=== PATIENT | female | born 1960 | race Two or more races ===

== ENCOUNTER → 2022-07-08 | Outpatient (CLI) | payer OTHER | END | disposition home or self-care (01) | LOC: Rad HDHVI 13:44 | PROVIDERS: ATTEND Internal Medicine Cardiovascular Disease | DX: I08.1 Rheumatic disorders of both mitral and tricuspid valves (principal); I11.9 Hypertensive heart disease without heart failure | CPT/HCPCS: 93306 ==

== ENCOUNTER → 2022-08-04 | Outpatient (CLI) | payer OTHER ==
[~2022-08-04] VITALS: Ht 172.7 cm; Wt 130.2 kg
[~2022-08-04] MED LIST: ADENOSINE 109 MG in GIVE UN-DILUTED 0 ML IV ONE; ADENOSINE 90 MG/30 ML INJ IV ONE
== END | disposition home or self-care (01) ==
LOC: Rad HDHVI 13:31
PROVIDERS: ATTEND Internal Medicine Cardiovascular Disease
DX: I25.10 Atherosclerotic heart disease of native coronary artery without angina pectoris (principal); I25.2 Old myocardial infarction; R06.02 Shortness of breath; I10 Essential (primary) hypertension; E78.5 Hyperlipidemia, unspecified; J44.9 Chronic obstructive pulmonary disease, unspecified; E11.9 Type 2 diabetes mellitus without complications; R07.89 Other chest pain; Z79.899 Other long term (current) drug therapy
CPT/HCPCS: 78452; 93005; 96374; 96375; A9500; J0153

== ENCOUNTER → 2023-03-03 | Outpatient (CLI) | payer OTHER ==
[~2023-03-03] MED LIST changes: -ADENOSINE 109 MG in GIVE UN-DILUTED 0 ML IV ONE; -ADENOSINE 90 MG/30 ML INJ IV ONE; +ATOR-47 PO; +BUME2TAB5 PO; +BUPR75TA96 PO; +CARV12.544 PO; +CHOL50007 PO; +DULO30CA96 PO; +FOLI-119 PO; +HYDR-4188 PO; +HYDR-4902 PO; +LEVO100T8 PO; +MAGN100T9 PO; +METH2.5T PO; +NITR0.4S29 SL; +POTA1TAB61 PO; +SITA100T7 PO; +TIOTCAP IN; +UPAD15TA PO
[2023-03-03 10:20] VITALS: BP 140/64; PULSE 63; RESP 18; O2SAT 95
[2023-03-03 10:33] VITALS: BP 116/66; PULSE 63; RESP 18; O2SAT 95
== END | disposition home or self-care (01) ==
LOC: CHF HDHVI 10:05
PROVIDERS: ATTEND Internal Medicine Cardiovascular Disease
DX: Z01.818 Encounter for other preprocedural examination (principal); I10 Essential (primary) hypertension; R07.89 Other chest pain; R06.02 Shortness of breath
CPT/HCPCS: 93005; G0463

== ENCOUNTER 2023-03-04 08:47 | Day surgery (SDC) | payer OTHER, MEDICAID ==
[2023-03-03 12:16] LABS: Basophils # (auto) 0.1 10 ^3/uL (0-0.2); Basophils % (auto) 1.3 % (0.0-2.0); Eosinophils # (auto) 0.1 10 ^3/uL (0-0.8); Eosinophils % (auto) 2.2 % (0.0-7.0); Hemoglobin 13.2 g/dL (12.2-16.2); Lymphocytes # (auto) 1.8 10 ^3/uL (0.4-5.4); Lymphocytes % (auto) 35.7 % (10.0-50.0); Mean Corpuscular Hgb Conc. 31.5 g/dL (32.0-36.0); Mean Corpuscular Volume 85.6 fL (80.0-100.0); Monocytes # (auto) 0.7 10 ^3/uL (0-1.3); Monocytes % (auto) 13.2 % (0.0-12.0); Neutrophils # (auto) 2.4 10 ^3/uL (1.6-8.6); Neutrophils % (auto) 47.6 % (37.0-80.0); Nucleated Red Blood Cells % 0.1 %; Red Blood Cells 4.91 10^6/uL (4.0-5.20); White Blood Cell 5.1 10^3/uL (4.4-10.8)
[2023-03-03 12:54] LABS: INR 1.09 (0.9-1.15); Partial Thromboplastin Time 28.7 SEC (24.5-34.5); Prothrombin Time 11.4 sec (9.3-11.8)
[2023-03-03 12:57] LABS: Anion Gap 6 (5-15); Carbon Dioxide 28 mmol/L (20-30); Chloride 104 mmol/L (98-107); Potassium 4.5 mmol/L (3.5-5.1); Sodium 138 mmol/L (136-145)
[2023-03-03 12:58] LABS: Calcium 9.6 mg/dL (8.5-10.1)
[2023-03-03 13:03] LABS: BUN/Creatinine Ratio 11.8 (10.0-20.0); Blood Urea Nitrogen 16 mg/dL (9-23); Glucose 147 mg/dL (74-106)
[~2023-03-04] VITALS: Ht 172.7 cm; Wt 139.3 kg
[~2023-03-04 08:47] MED LIST changes: -UPAD15TA PO
[2023-03-04] MEDS ORDERED: VANCOMYCIN 1GM/200ML 200 ML IV ONE (09:30)
[2023-03-04] MEDS ORDERED: VANCOMYCIN HCL 1000 MG VL ONE (13:26)
[2023-03-04] MEDS ORDERED: LIDOCAINE 2%HCL (LOCAL ANESTH.) INJ 20ML MDV ONE ×2 (13:27→13:55)
[2023-03-04] MEDS ORDERED: fentaNYL CITRATE 100 MCG/2 ML VL ONE (13:27)
[2023-03-04] MEDS ORDERED: MIDAZOLAM HCL 2MG/2ML 2ml VIAL (1mg/ml) ONE (13:27)
== END 2023-03-04 16:40 | disposition home or self-care (01) ==
LOC: CATH 08:47
PROVIDERS: ATTEND Internal Medicine Cardiovascular Disease
DX: I49.5 Sick sinus syndrome (principal); J44.9 Chronic obstructive pulmonary disease, unspecified; E11.40 Type 2 diabetes mellitus with diabetic neuropathy, unspecified; I10 Essential (primary) hypertension; Z86.74 Personal history of sudden cardiac arrest; Z88.8 Allergy status to other drugs, medicaments and biological substances; Z88.6 Allergy status to analgesic agent; Z95.5 Presence of coronary angioplasty implant and graft; Z87.891 Personal history of nicotine dependence; Z79.899 Other long term (current) drug therapy; Z98.890 Other specified postprocedural states
CPT/HCPCS: 33208; 36415; 71045; 80048; 85025; 85610; 85730; C1785; C1898; J2250; J3010; J3370; 93005; 99152

== ENCOUNTER → 2023-04-06 | Outpatient (CLI) | payer OTHER | END | disposition home or self-care (01) | LOC: Rad HDHVI 08:01 | PROVIDERS: ATTEND Internal Medicine Cardiovascular Disease | DX: I08.1 Rheumatic disorders of both mitral and tricuspid valves (principal); R07.89 Other chest pain; R42 Dizziness and giddiness | CPT/HCPCS: 93306 ==

== ENCOUNTER 2023-04-16 17:58 | Inpatient (IN) | payer OTHER, MEDICAID ==
[~2023-04-16] VITALS: Ht 172.7 cm; Wt 139.0 kg
[~2023-04-16 17:58] MED LIST changes: -HYDR-4188 PO; +HYDR-4491 PO; +POTA-215 PO; -POTA1TAB61 PO
[2023-04-16 18:33] LABS: Hematocrit 36.6 % (36.0-46.0); Hemoglobin 11.7 g/dL (12.2-16.2); Mean Corpuscular Hemoglobin 27.6 pg (28.0-32.0); Mean Corpuscular Hgb Conc. 31.9 g/dL (32.0-36.0); Mean Corpuscular Volume 86.5 fL (80.0-100.0); Red Blood Cells 4.23 10^6/uL (4.0-5.20); White Blood Cell 4.4 10^3/uL (4.4-10.8)
[2023-04-16 18:37] LABS: Red Cell Distribution Width 21.6 % (11.8-14.3)
[2023-04-16 18:40] LABS: Band Neutrophils % (manual) 0; Basophils % (manual) 0 (0.0-2.0); Blast Cells 0; Metamyelocytes % 0; Myelocytes % 0; Promyelocytes % 0; Reactive Lymphocytes 0
[2023-04-16 19:00] LABS: Alanine Aminotransferase 13 U/L (7-40); Albumin 3.7 g/dL (3.2-4.8); Alkaline Phosphatase 165 U/L (46-116); Anion Gap 5 (5-15); Aspartate Aminotransferase 25 U/L (13-40); BUN/Creatinine Ratio 14.8 (10.0-20.0); Blood Urea Nitrogen 19 mg/dL (9-23); Calcium 9.2 mg/dL (8.5-10.1); Carbon Dioxide 29 mmol/L (20-30); Chloride 106 mmol/L (98-107); Glucose 114 mg/dL (74-106); Potassium 4.3 mmol/L (3.5-5.1); Sodium 140 mmol/L (136-145)
[2023-04-16 19:01] LABS: Bilirubin, Total 0.4 mg/dL (0.2-1.0); Total Protein 6.4 g/dL (5.7-8.2)
[2023-04-16 19:23] LABS: Eosinophils % (manual) 4 (0-7); Lymphocytes % (manual) 21 (10.0-50.0); Monocytes % (manual) 16 (0-12)
[2023-04-16 19:24] LABS: Platelet Estimate Adequate
[2023-04-16 19:37] LABS: INR 1.14 (0.9-1.15); Partial Thromboplastin Time 32.7 SEC (24.5-34.5); Prothrombin Time 11.9 sec (9.3-11.8)
[2023-04-16 19:59] VITALS: PULSE 76; RESP 20; O2SAT 100
[2023-04-16] MEDS ORDERED: DOCUSATE SOD 100 MG CAP PO PRN (20:45)
[2023-04-16] MEDS ORDERED: ONDANSETRON HCL 4 MG/2 ML VIAL IV PRN (20:45)
[2023-04-16] MEDS: SODIUM CHLOR 0.9% PF (SALINE LOCK) 10ML VIAL/SYR IV SCH (22:02)
[2023-04-16] MEDS: ATORVASTATIN 20 MG TAB PO SCH (22:11)
[2023-04-16] MEDS: CARVEDILOL 3.125 MG TAB PO SCH (22:12)
[2023-04-17] VITALS (8 sets, daily range): BP systolic 101–148; BP diastolic 50–59; PULSE 69–85; RESP 14–20; TEMP 97.9–98.7; O2SAT 96–100
[2023-04-17] MEDS ORDERED: PNEUMOCOCCAL VACC POLYS 25 MCG/0.5 ML VIAL IM ONE (03:15)
[2023-04-17 06:21] LABS: Hematocrit 34.8 % (36.0-46.0); Hemoglobin 11.4 g/dL (12.2-16.2); Mean Corpuscular Hemoglobin 28.2 pg (28.0-32.0); Mean Corpuscular Hgb Conc. 32.8 g/dL (32.0-36.0); Mean Corpuscular Volume 85.9 fL (80.0-100.0); Red Blood Cells 4.05 10^6/uL (4.0-5.20); White Blood Cell 3.7 10^3/uL (4.4-10.8)
[2023-04-17 06:27] LABS: Alanine Aminotransferase 10 U/L (7-40); Alkaline Phosphatase 144 U/L (46-116); Anion Gap 7 (5-15); BUN/Creatinine Ratio 10.8 (10.0-20.0); Blood Urea Nitrogen 13 mg/dL (9-23); Calcium 8.9 mg/dL (8.7-10.4); Carbon Dioxide 26 mmol/L (20-30); Chloride 107 mmol/L (98-107); Glucose 109 mg/dL (74-106); Potassium 3.9 mmol/L (3.5-5.1); Sodium 140 mmol/L (136-145)
[2023-04-17 06:28] LABS: Albumin 3.5 g/dL (3.2-4.8); Aspartate Aminotransferase 19 U/L (13-40); Bilirubin, Total 0.5 mg/dL (0.2-1.0); Total Protein 6.2 g/dL (5.7-8.2)
[2023-04-17] MEDS: LEVOTHYROXINE SODIUM 100 MCG TAB PO SCH (06:32)
[2023-04-17 06:58] LABS: Red Cell Distribution Width 21.2 % (11.8-14.3)
[2023-04-17 07:00] LABS: Basophils % (manual) 0 (0.0-2.0); Blast Cells 0; Metamyelocytes % 0; Myelocytes % 0; Promyelocytes % 0; Reactive Lymphocytes 0
[2023-04-17 08:14] LABS: Band Neutrophils % (manual) 1; Eosinophils % (manual) 4 (0-7)
[2023-04-17 08:15] LABS: Lymphocytes % (manual) 38 (10.0-50.0); Monocytes % (manual) 25 (0-12)
[2023-04-17 08:16] LABS: Anisocytosis Slight; Platelet Estimate Adequate
[2023-04-17] MEDS: ASPirin 81 mg TAB PO SCH (17:05)
[2023-04-17] MEDS: IBUPROFEN 600 MG TAB PO PRN (21:29)
[2023-04-18] VITALS (7 sets, daily range): BP systolic 112–143; BP diastolic 45–80; PULSE 63–87; RESP 18–22; TEMP 97.5–99.5; O2SAT 97–100
[2023-04-18 06:52] LABS: Hematocrit 36.4 % (36.0-46.0); Hemoglobin 11.7 g/dL (12.2-16.2); Mean Corpuscular Hemoglobin 27.9 pg (28.0-32.0); Mean Corpuscular Hgb Conc. 32.2 g/dL (32.0-36.0); Mean Corpuscular Volume 86.6 fL (80.0-100.0); White Blood Cell 5.3 10^3/uL (4.4-10.8)
[2023-04-18 06:54] LABS: Red Cell Distribution Width 21.3 % (11.8-14.3)
[2023-04-18 06:55] LABS: Basophils % (manual) 0 (0.0-2.0); Blast Cells 0; Metamyelocytes % 0; Myelocytes % 0; Promyelocytes % 0; Reactive Lymphocytes 0
[2023-04-18 07:17] LABS: Urine Bacteria FEW /hpf (None Seen); Urine Blood Negative /uL (Negative); Urine Clarity Clear (Clear); Urine Protein, UAD Negative (Negative); Urine Specific Gravity 1.006 (1.001-1.035); Urine Urobilinogen Normal (Negative); Urine WBC 9 /hpf (0 - 5)
[2023-04-18 07:19] LABS: Urine Color Yellow (Yellow)
[2023-04-18 07:23] LABS: Albumin 3.7 g/dL (3.2-4.8); Alkaline Phosphatase 150 U/L (46-116); Anion Gap 8 (5-15); Aspartate Aminotransferase 21 U/L (13-40); BUN/Creatinine Ratio 13.3 (10.0-20.0); Bilirubin, Total 0.5 mg/dL (0.2-1.0); Blood Urea Nitrogen 15 mg/dL (9-23); Calcium 9.3 mg/dL (8.5-10.1); Carbon Dioxide 27 mmol/L (20-30); Chloride 106 mmol/L (98-107); Glucose 94 mg/dL (74-106); Potassium 3.8 mmol/L (3.5-5.1); Sodium 141 mmol/L (136-145); Total Protein 6.6 g/dL (5.7-8.2)
[2023-04-18 07:24] LABS: Alanine Aminotransferase < 9 U/L (7-40)
[2023-04-18 07:30] LABS: Amphetamine Screen, Urine Neg (NEGATIVE); Barbiturate Scree,Urine Neg (NEGATIVE); Benzodiazephine Screen, Urine Neg (NEGATIVE); Cocaine Screen, Urine Neg (NEGATIVE)
[2023-04-18 07:31] LABS: Cannabinoid Screen, Urine Neg (NEGATIVE); Opiate Scree,Urine Neg (NEGATIVE); Phencyclidine Screen, Urine Neg (NEGATIVE)
[2023-04-18 08:24] LABS: Anisocytosis Slight; Band Neutrophils % (manual) 1; Eosinophils % (manual) 5 (0-7); Lymphocytes % (manual) 24 (10.0-50.0); Monocytes % (manual) 20 (0-12); Platelet Estimate Adequate
[2023-04-18] MEDS: NITROGLYCERIN 0.4 MG SL TAB SL PRN (11:29)
[2023-04-18] MEDS: MORPHINE SULFATE INJ 2 MG/ml SYRG IV PRN (11:45)
[2023-04-18] MEDS: cefTRIAXone 1GM/50ML D5W 50 ML IV ONE (17:32)
[2023-04-19] VITALS (10 sets, daily range): BP systolic 105–138; BP diastolic 50–74; PULSE 65–87; RESP 18–22; TEMP 97.9–98.3; O2SAT 94–100
[2023-04-19] MEDS: cefTRIAXone 1GM/50ML D5W 50 ML IV SCH (08:34)
[2023-04-19 08:55] LABS: Hepatitis B Surface Antigen Negative (Negative)
[2023-04-19 09:16] LABS: Hepatitis C Antibody Negative (Negative)
[2023-04-19 12:27] LABS: Hematocrit 37.1 % (36.0-46.0); Hemoglobin 12.1 g/dL (12.2-16.2); Mean Corpuscular Hemoglobin 27.9 pg (28.0-32.0); Mean Corpuscular Hgb Conc. 32.5 g/dL (32.0-36.0); Mean Corpuscular Volume 85.9 fL (80.0-100.0); Red Blood Cells 4.32 10^6/uL (4.0-5.20); White Blood Cell 7.5 10^3/uL (4.4-10.8)
[2023-04-19 12:36] LABS: Band Neutrophils % (manual) 0; Basophils % (manual) 0 (0.0-2.0); Blast Cells 0; Metamyelocytes % 0; Myelocytes % 0; Promyelocytes % 0; Reactive Lymphocytes 0
[2023-04-19 12:47] LABS: Albumin 3.7 g/dL (3.2-4.8); Alkaline Phosphatase 143 U/L (46-116); Anion Gap 4 (5-15); Aspartate Aminotransferase 17 U/L (13-40); BUN/Creatinine Ratio 11.7 (10.0-20.0); Blood Urea Nitrogen 12 mg/dL (9-23); Carbon Dioxide 26 mmol/L (20-30); Chloride 106 mmol/L (98-107); Glucose 118 mg/dL (74-106); Magnesium 2.1 mg/dL (1.6-2.6); Potassium 3.8 mmol/L (3.5-5.1)
[2023-04-19 12:48] LABS: Bilirubin, Total 0.6 mg/dL (0.2-1.0); Eosinophils % (manual) 1 (0-7); Lymphocytes % (manual) 24 (10.0-50.0); Monocytes % (manual) 16 (0-12); Total Protein 6.7 g/dL (5.7-8.2)
[2023-04-19 12:49] LABS: Anisocytosis Slight; Platelet Estimate Adequate
[2023-04-19 12:51] LABS: Alanine Aminotransferase < 9 U/L (7-40); Sodium 136 mmol/L (136-145)
[2023-04-19] MEDS: DOXYCYCLINE 100 MG TAB/CAP PO ONE (15:35)
[2023-04-19] MEDS ORDERED: ALBUTEROL SULF 2.5 MG/0.5ML(0.5%) NEB SOLN NEB PRN (15:45)
[2023-04-19] MEDS ORDERED: IPRATROPIUM BROM 0.5 MG/2.5ML INH SOL NEB PRN (15:45)
[2023-04-19 16:32] LABS: Rapid Influenza A Negative (Negative); Rapid Influenza B Negative (Negative)
[2023-04-19 16:33] LABS: COVID19 ANTIGEN SOFIA FIA NEGATIVE (NEGATIVE)
[2023-04-19] MEDS: buPROPion HCL 75 MG TAB PO SCH (18:08)
[2023-04-19] MEDS: DOXYCYCLINE 100 MG TAB/CAP PO SCH (21:26)
[2023-04-19] MEDS: ATORVASTATIN 20 MG TAB PO SCH (21:27)
[2023-04-19] MEDS: CARVEDILOL 12.5 MG TAB PO SCH (21:28)
[2023-04-19] MEDS: ENOXAPARIN SOD 30 MG/0.3 ML SYRINGE SC SCH (21:52)
[2023-04-20] VITALS (12 sets, daily range): BP systolic 102–131; BP diastolic 52–69; PULSE 60–74; RESP 18–22; TEMP 97.5–98.1; O2SAT 97–100
[2023-04-20 06:28] LABS: Hematocrit 34.8 % (36.0-46.0); Hemoglobin 11.1 g/dL (12.2-16.2); Mean Corpuscular Hemoglobin 27.6 pg (28.0-32.0); Mean Corpuscular Hgb Conc. 31.9 g/dL (32.0-36.0); Mean Corpuscular Volume 86.6 fL (80.0-100.0); Red Blood Cells 4.02 10^6/uL (4.0-5.20); White Blood Cell 5.3 10^3/uL (4.4-10.8)
[2023-04-20 06:41] LABS: Anion Gap 5 (5-15); Carbon Dioxide 29 mmol/L (20-30); Chloride 106 mmol/L (98-107); Potassium 3.9 mmol/L (3.5-5.1); Sodium 140 mmol/L (136-145)
[2023-04-20 06:42] LABS: Calcium 9.3 mg/dL (8.5-10.1)
[2023-04-20 06:46] LABS: Glucose 129 mg/dL (74-106)
[2023-04-20 06:47] LABS: BUN/Creatinine Ratio 12.4 (10.0-20.0); Blood Urea Nitrogen 14 mg/dL (9-23); Triglycerides 62 mg/dL (< 150)
[2023-04-20 06:48] LABS: Cholesterol 93 mg/dL (< 200); LDL Cholesterol 31 mg/dL (< 100)
[2023-04-20 06:49] LABS: HDL Cholesterol 49 mg/dL (40-59)
[2023-04-20 07:03] LABS: Red Cell Distribution Width 21.1 % (11.8-14.3)
[2023-04-20 07:04] LABS: Basophils % (manual) 0 (0.0-2.0); Blast Cells 0; Metamyelocytes % 0; Myelocytes % 0; Promyelocytes % 0; Reactive Lymphocytes 0
[2023-04-20 07:05] LABS: Magnesium 2.2 mg/dL (1.6-2.6)
[2023-04-20 07:40] LABS: Band Neutrophils % (manual) 1; Eosinophils % (manual) 8 (0-7); Lymphocytes % (manual) 37 (10.0-50.0); Monocytes % (manual) 17 (0-12); Platelet Estimate Adequate
[2023-04-20] MEDS: IOHEXOL 300 MG/ML 100ML BOTTLE IJ ONE (08:34)
[2023-04-20] MEDS ORDERED: ACETAMINOPHEN 325 MG TAB PO PRN (10:30)
[2023-04-20] MEDS: traMADol HCL 50 MG TAB PO PRN (11:22)
[2023-04-21] VITALS (18 sets, daily range): BP systolic 91–137; BP diastolic 47–70; PULSE 61–72; RESP 6–18; TEMP 97.4–98.3; O2SAT 93–100
[2023-04-21 07:10] LABS: INR 1.14 (0.9-1.15); Partial Thromboplastin Time 33.1 SEC (24.5-34.5); Prothrombin Time 11.9 sec (9.3-11.8)
[2023-04-21] MEDS: VANCOMYCIN HCL 1000 MG VL ONE (13:40)
[2023-04-21] MEDS: MIDAZOLAM HCL 2MG/2ML 2ml VIAL (1mg/ml) ONE (13:41)
[2023-04-21] MEDS: VANCOMYCIN 1GM/200ML 200 ML IV ONE (13:41)
[2023-04-21] MEDS: fentaNYL CITRATE 100 MCG/2 ML VL ONE (13:41)
[2023-04-21] MEDS: LIDOCAINE 2%HCL (LOCAL ANESTH.) INJ 20ML MDV ONE (13:41)
[2023-04-21] MEDS ORDERED: ceFAZolin 1GM/50ML 50 ML IV SCH (15:45)
[2023-04-21] MEDS: ceFAZolin 1GM/50ML 50 ML IV SCH (17:20)
[2023-04-21] MEDS: VANCOMYCIN 1GM/200ML 200 ML IV SCH (21:30)
[2023-04-22] VITALS (12 sets, daily range): BP systolic 107–134; BP diastolic 51–82; PULSE 65–88; RESP 18–20; TEMP 97.1–98.1; O2SAT 96–100
[2023-04-22] MEDS: IBUPROFEN 400 MG TAB PO PRN (01:42)
[2023-04-22 07:24] LABS: Hematocrit 34.9 % (36.0-46.0); Mean Corpuscular Hemoglobin 27.2 pg (28.0-32.0); Mean Corpuscular Hgb Conc. 31.5 g/dL (32.0-36.0); Mean Corpuscular Volume 86.5 fL (80.0-100.0); Red Blood Cells 4.03 10^6/uL (4.0-5.20); White Blood Cell 4.5 10^3/uL (4.4-10.8)
[2023-04-22 07:35] LABS: Red Cell Distribution Width 20.4 % (11.8-14.3)
[2023-04-22 07:37] LABS: Albumin 3.3 g/dL (3.2-4.8); Alkaline Phosphatase 124 U/L (46-116); Anion Gap 4 (5-15); Aspartate Aminotransferase 16 U/L (13-40); BUN/Creatinine Ratio 13.5 (10.0-20.0); Band Neutrophils % (manual) 0; Basophils % (manual) 0 (0.0-2.0); Blast Cells 0; Blood Urea Nitrogen 13 mg/dL (9-23); Calcium 8.8 mg/dL (8.7-10.4); Carbon Dioxide 27 mmol/L (20-30); Chloride 107 mmol/L (98-107); Glucose 131 mg/dL (74-106); Magnesium 1.9 mg/dL (1.6-2.6); Metamyelocytes % 0; Myelocytes % 0; Promyelocytes % 0; Reactive Lymphocytes 0; Sodium 138 mmol/L (136-145)
[2023-04-22 07:38] LABS: Bilirubin, Total 0.5 mg/dL (0.2-1.0)
[2023-04-22 07:45] LABS: Alanine Aminotransferase < 9 U/L (7-40)
[2023-04-22 08:27] LABS: Eosinophils % (manual) 5 (0-7); Lymphocytes % (manual) 25 (10.0-50.0); Monocytes % (manual) 18 (0-12); Platelet Estimate Adequate
[2023-04-22] MEDS: PNEUMOCOCCAL VACC POLYS 25 MCG/0.5 ML VIAL IM ONE (15:30)
[2023-04-23] VITALS (7 sets, daily range): BP systolic 121–135; BP diastolic 58–65; PULSE 61–70; RESP 17–20; TEMP 36.5; O2SAT 94–100
[2023-04-23 07:06] LABS: Hematocrit 34.6 % (36.0-46.0); Hemoglobin 11.2 g/dL (12.2-16.2); Mean Corpuscular Hemoglobin 27.5 pg (28.0-32.0); Mean Corpuscular Hgb Conc. 32.3 g/dL (32.0-36.0); Mean Corpuscular Volume 85.1 fL (80.0-100.0); Red Blood Cells 4.06 10^6/uL (4.0-5.20)
[2023-04-23 07:09] LABS: Chloride 108 mmol/L (98-107); Potassium 3.8 mmol/L (3.5-5.1); Red Cell Distribution Width 20.5 % (11.8-14.3); Sodium 141 mmol/L (136-145)
[2023-04-23 07:10] LABS: Anion Gap 6 (5-15); Band Neutrophils % (manual) 0; Basophils % (manual) 0 (0.0-2.0); Blast Cells 0; Calcium 8.9 mg/dL (8.7-10.4); Carbon Dioxide 27 mmol/L (20-30); Eosinophils % (manual) 0 (0-7); Metamyelocytes % 0; Myelocytes % 0; Promyelocytes % 0; Reactive Lymphocytes 0
[2023-04-23 07:15] LABS: BUN/Creatinine Ratio 15.6 (10.0-20.0); Blood Urea Nitrogen 14 mg/dL (9-23); Glucose 112 mg/dL (74-106)
[2023-04-23 07:16] LABS: Magnesium 2.2 mg/dL (1.6-2.6)
[2023-04-23 07:44] LABS: Lymphocytes % (manual) 33 (10.0-50.0)
[2023-04-23 07:45] LABS: Monocytes % (manual) 12 (0-12); Platelet Estimate Adequate
== END 2023-04-23 20:50 | disposition home or self-care (01) | DRG 260 ==
LOC: ER 17:58 → TELE 22:03 → TELE-WESTW 04-17 01:24
PROVIDERS: ADMIT Internal Medicine Geriatric Medicine; ATTEND Internal Medicine Geriatric Medicine
PROC: 5A09357 Assistance with Respiratory Ventilation, Less than 24 Consecutive Hours, Continuous Positive Airway Pressure (ICD-10-PCS; principal; 2023-04-19)
PROC: 5A09357 Assistance with Respiratory Ventilation, Less than 24 Consecutive Hours, Continuous Positive Airway Pressure (ICD-10-PCS; 2023-04-20)
PROC: 02H63JZ Insertion of Pacemaker Lead into Right Atrium, Percutaneous Approach (ICD-10-PCS; 2023-04-21)
PROC: 02PA3MZ Removal of Cardiac Lead from Heart, Percutaneous Approach (ICD-10-PCS; 2023-04-21)
PROC: 02HL3JZ Insertion of Pacemaker Lead into Left Ventricle, Percutaneous Approach (ICD-10-PCS; 2023-04-21)
DX: T82.118A Breakdown (mechanical) of other cardiac electronic device, initial encounter (principal); J15.69 Pneumonia due to other Gram-negative bacteria; J15.9 Unspecified bacterial pneumonia; J44.0 Chronic obstructive pulmonary disease with (acute) lower respiratory infection; N39.0 Urinary tract infection, site not specified; N17.9 Acute kidney failure, unspecified; Z68.41 Body mass index [BMI] 40.0-44.9, adult; T82.9XXA Unspecified complication of cardiac and vascular prosthetic device, implant and graft, initial encounter; E78.5 Hyperlipidemia, unspecified; E03.9 Hypothyroidism, unspecified; N18.30 Chronic kidney disease, stage 3 unspecified; E66.01 Morbid (severe) obesity due to excess calories; D72.819 Decreased white blood cell count, unspecified; D64.9 Anemia, unspecified; R79.89 Other specified abnormal findings of blood chemistry; R74.8 Abnormal levels of other serum enzymes; E11.22 Type 2 diabetes mellitus with diabetic chronic kidney disease; I12.9 Hypertensive chronic kidney disease with stage 1 through stage 4 chronic kidney disease, or unspecified chronic kidney disease; I25.10 Atherosclerotic heart disease of native coronary artery without angina pectoris; E11.40 Type 2 diabetes mellitus with diabetic neuropathy, unspecified; G47.33 Obstructive sleep apnea (adult) (pediatric); Z88.5 Allergy status to narcotic agent; Z95.0 Presence of cardiac pacemaker; Z88.6 Allergy status to analgesic agent; I25.2 Old myocardial infarction; Z95.5 Presence of coronary angioplasty implant and graft; Z87.891 Personal history of nicotine dependence; Z86.73 Personal history of transient ischemic attack (TIA), and cerebral infarction without residual deficits; Z82.49 Family history of ischemic heart disease and other diseases of the circulatory system
CPT/HCPCS: 33218; 36415; 71045; 71046; 71260; 74177; 80048; 80053; 80061; 80307; 81001; 83036; 83605; 83690; 83735; 83880; 84443; 84484; 85007; 85027; 85610; 85730; 86803; 86850; 86900; 86901; 87040; 87081; 87086; 87088; 87186; 87340; 87426; 87804; 93005; 94640; 94660; 94668; 99152; G0378; J2250

== ENCOUNTER → 2023-08-04 | Outpatient (CLI) | payer OTHER, MEDICAID | END | disposition home or self-care (01) | LOC: Rad HDHVI 10:50 | PROVIDERS: ATTEND Internal Medicine Cardiovascular Disease | DX: I67.82 Cerebral ischemia (principal); G31.9 Degenerative disease of nervous system, unspecified; J32.2 Chronic ethmoidal sinusitis; J32.0 Chronic maxillary sinusitis; R42 Dizziness and giddiness | CPT/HCPCS: 70450 ==

== ENCOUNTER → 2023-08-11 | Outpatient (CLI) | payer OTHER | END | disposition home or self-care (01) | LOC: Rad HDHVI 12:28 | PROVIDERS: ATTEND Internal Medicine Cardiovascular Disease | DX: I65.23 Occlusion and stenosis of bilateral carotid arteries (principal); I10 Essential (primary) hypertension; R07.89 Other chest pain; R42 Dizziness and giddiness; E78.5 Hyperlipidemia, unspecified | CPT/HCPCS: 93880 ==

== ENCOUNTER → 2023-09-13 | Outpatient (CLI) | payer OTHER | END | disposition home or self-care (01) | LOC: Rad HDHVI 14:29 | PROVIDERS: ATTEND Internal Medicine Cardiovascular Disease | DX: I65.23 Occlusion and stenosis of bilateral carotid arteries (principal); I10 Essential (primary) hypertension | CPT/HCPCS: 93880 ==

== ENCOUNTER → 2023-09-29 | Outpatient (CLI) | payer OTHER ==
[~2023-09-29] MED LIST changes: +BUSP10TA31 PO
[2023-09-29 14:30] VITALS: BP 117/59; PULSE 61; RESP 18; O2SAT 94
[2023-09-29 14:47] VITALS: BP 133/66; PULSE 65; RESP 18; O2SAT 94
== END | disposition home or self-care (01) ==
LOC: Rad HDHVI 14:08
PROVIDERS: ATTEND Internal Medicine Cardiovascular Disease
DX: Z01.818 Encounter for other preprocedural examination (principal); I51.7 Cardiomegaly; I65.23 Occlusion and stenosis of bilateral carotid arteries; Z95.0 Presence of cardiac pacemaker
CPT/HCPCS: 71046; 93005; G0463

== ENCOUNTER 2023-09-30 07:06 | Day surgery (SDC) | payer OTHER, MEDICAID ==
[2023-09-29 16:15] LABS: Basophils # (auto) 0.1 10 ^3/uL (0-0.2); Basophils % (auto) 1.2 % (0.0-2.0); Eosinophils # (auto) 0.2 10 ^3/uL (0-0.8); Eosinophils % (auto) 4.3 % (0.0-7.0); Hematocrit 39.4 % (36.0-46.0); Hemoglobin 12.8 g/dL (12.2-16.2); Lymphocytes # (auto) 2.1 10 ^3/uL (0.4-5.4); Lymphocytes % (auto) 39.8 % (10.0-50.0); Mean Corpuscular Hgb Conc. 32.5 g/dL (32.0-36.0); Mean Corpuscular Volume 86.2 fL (80.0-100.0); Monocytes # (auto) 0.6 10 ^3/uL (0-1.3); Monocytes % (auto) 11.1 % (0.0-12.0); Neutrophils # (auto) 2.3 10 ^3/uL (1.6-8.6); Neutrophils % (auto) 43.6 % (37.0-80.0); Red Blood Cells 4.57 10^6/uL (4.0-5.20); Red Cell Distribution Width 18.8 % (11.8-14.3); White Blood Cell 5.2 10^3/uL (4.4-10.8)
[2023-09-29 16:44] LABS: INR 1.07 (0.9-1.15); Partial Thromboplastin Time 26.9 SEC (24.5-34.5); Prothrombin Time 11.3 sec (9.3-11.8)
[2023-09-29 17:04] LABS: Chloride 106 mmol/L (98-107); Potassium 4.7 mmol/L (3.5-5.1); Sodium 140 mmol/L (136-145)
[2023-09-29 17:05] LABS: Anion Gap 3 (5-15); Carbon Dioxide 31 mmol/L (20-30)
[2023-09-29 17:06] LABS: Calcium 10.1 mg/dL (8.7-10.4)
[2023-09-29 17:10] LABS: BUN/Creatinine Ratio 16.7 (10.0-20.0); Blood Urea Nitrogen 20 mg/dL (9-23); Glucose 117 mg/dL (74-106)
[~2023-09-30] VITALS: Ht 172.7 cm; Wt 137.9 kg
[2023-09-30] MEDS ORDERED: IOHEXOL 350 MG/ML 100ML IJ ONE (08:33)
[2023-09-30] MEDS ORDERED: PHENYLEPHRINE HCL 10 MG/ML VL ONE (09:14)
[2023-09-30] MEDS ORDERED: ANGIOMAX 250 MG VIAL IV ONE (09:14)
[2023-09-30] MEDS ORDERED: GLYCOPYRROLATE 0.2 MG/ML 1ML VIAL ONE (09:14)
[2023-09-30] MEDS ORDERED: SODIUM CHL 0.9% 0 ML ONE (09:14)
[2023-09-30] MEDS ORDERED: LIDOCAINE 2%HCL (LOCAL ANESTH.) INJ 20ML MDV ONE (09:15)
== END 2023-09-30 12:37 | disposition home or self-care (01) ==
LOC: CATH 07:06
PROVIDERS: ATTEND Internal Medicine Cardiovascular Disease
DX: I65.29 Occlusion and stenosis of unspecified carotid artery (principal); I11.0 Hypertensive heart disease with heart failure; I50.9 Heart failure, unspecified; F32.A Depression, unspecified; J44.9 Chronic obstructive pulmonary disease, unspecified; Z88.6 Allergy status to analgesic agent; Z88.8 Allergy status to other drugs, medicaments and biological substances; Z87.891 Personal history of nicotine dependence; Z82.49 Family history of ischemic heart disease and other diseases of the circulatory system; Z83.3 Family history of diabetes mellitus; Z80.8 Family history of malignant neoplasm of other organs or systems
CPT/HCPCS: 36222; 36415; 80048; 85025; 85610; 85730; C1760; C1887; C1894; J1644; J7030; Q9967; 36226; 99152

== ENCOUNTER 2024-09-13 11:38 | Outpatient (CLI) | payer OTHER, MEDICAID ==
[2024-09-13 11:50] VITALS: BP 135/63; PULSE 65; RESP 16; O2SAT 93
[2024-09-13 12:08] VITALS: BP 135/60; PULSE 70; RESP 16; O2SAT 93
[2024-09-13] MEDS ORDERED: HYDR-4795 PO (13:10)
--- NOTE | 2024-09-13 14:02 | DVH ---
XY CHEST TWO VIEWS ROUTINE CLINICAL HISTORY: PRE OP CARDIAC CLEARANCE COMPARISON: XY CHEST TWO VIEWS ROUTINE on DOS: 09/29/23, XY CHEST TWO VIEWS ROUTINE on DOS: 04/16/23 TECHNIQUE: Frontal and lateral view of the chest was obtained FINDINGS: Lines and Tubes: Left-sided pacemaker Lungs: No focal consolidation. Pleura: No effusion. No pneumothorax. Cardiomediastinal contours: Unremarkable Bones: No acute osseous abnormality. IMPRESSION: No acute cardiopulmonary disease.
== END 2024-09-13 17:00 | disposition home or self-care (01) ==
LOC: RT 11:38
PROVIDERS: ATTEND Internal Medicine Cardiovascular Disease
DX: Z01.818 Encounter for other preprocedural examination (principal)
CPT/HCPCS: 71046; 93005; G0463

== ENCOUNTER 2024-09-14 07:12 | Day surgery (SDC) | payer OTHER, MEDICAID ==
[2024-09-13 14:18] LABS: Chloride 105 mmol/L (98-107); Potassium 4.2 mmol/L (3.5-5.1); Sodium 142 mmol/L (136-145)
[2024-09-13 14:19] LABS: Anion Gap 7 (5-15); Carbon Dioxide 30 mmol/L (20-31); Hematocrit 39.2 % (36.0-46.0); Hemoglobin 13.0 g/dL (12.2-16.2); Mean Corpuscular Hemoglobin 28.6 pg (28.0-32.0); Mean Corpuscular Volume 86.0 fL (80.0-100.0); Nucleated Red Blood Cells % 0.1 %
[2024-09-13 14:20] LABS: Calcium 9.6 mg/dL (8.7-10.4)
[2024-09-13 14:24] LABS: BUN/Creatinine Ratio 12.7 (10.0-20.0); Blood Urea Nitrogen 16 mg/dL (9-23)
[2024-09-13 14:31] LABS: Glucose 142 mg/dL (74-106)
[2024-09-13 14:32] LABS: INR 1.15 (0.9-1.15); Partial Thromboplastin Time 28.8 SEC (24.5-34.5); Prothrombin Time 12.0 sec (9.3-11.8)
[2024-09-14] VITALS (9 sets, daily range): BP systolic 98–122; BP diastolic 59–71; PULSE 57–62; RESP 12–16; O2SAT 93–100
[~2024-09-14] VITALS: Ht 172.7 cm; Wt 140.6 kg
[~2024-09-14 07:12] MED LIST changes: +HYDR-4795 PO; -HYDR-4902 PO
[2024-09-14] MEDS: fentaNYL CITRATE 100 MCG/2 ML VL ONE (10:10)
[2024-09-14] MEDS: MIDAZOLAM HCL 2MG/2ML 2ml VIAL (1mg/ml) ONE (10:11)
[2024-09-14] MEDS: LIDOCAINE 2%HCL (LOCAL ANESTH.) INJ 20ML MDV ONE ×2 (10:11→10:27)
[2024-09-14] MEDS: ceFAZolin 1GM/50ML 50 ML IV ONE (10:12)
[2024-09-14] MEDS: VANCOMYCIN HCL 1000 MG VL ONE (10:15)
[2024-09-14] MEDS: HYDROmorphone HCL 2 MG/ML VL/or syr ONE (10:39)
[2024-09-14] MEDS: ceFAZolin 1GM VL ONE (11:39)
--- NOTE | 2024-09-14 12:22 | DVHHP ---
ADMIT DATE: 09/14/2024 HISTORY OF PRESENT ILLNESS: The patient is 64 years old with history of sick sinus syndrome, marked bradycardia, history of syncope and dizziness. Now had a dual-chamber AICD implanted, but on 2 separate occasions, because of body habitus, the patient has severe morbid obesity, the patient had dislodged a lead. This is the second revision of the permanent pacemaker. The leads have to be repositioned, both atrial and ventricular leads have dislodged, the active fixation lead. PAST MEDICAL HISTORY: Pertinent medical history is significant for hypertension, hyperlipidemia, history of COPD, history of sleep apnea, metabolic syndrome as well. REVIEW OF SYSTEMS: She denies any fever, chills, melena, hematochezia, hematemesis or hemoptysis. No history of any recent trauma. No history of connective tissue disease. No history of any CVA in the past. PHYSICAL EXAMINATION: VITAL SIGNS: Blood pressure is 143/84, pulse of 42 and regular, O2 saturation is 98% on room air. HEENT: Pupils are reactive. Funduscopic exam shows no AV nicking. No exudates. No papilledema. Sclerae anicteric. Extraocular muscles are intact. NECK: No JVD appreciated. Carotid pulses are 2+ symmetrical. Normal upstroke and contour. No cervical adenopathy. No supraclavicular adenopathy. PULMONARY: Clear to auscultation in all lung solomon. Tympanic to percussion. CARDIOVASCULAR: Regular rate without S3, without S4. PMI is nondisplaced. ABDOMEN: Soft, nontender. Normal bowel sounds. Obese. Unable to appreciate organomegaly. Stool guaiac is negative. EXTREMITIES: 1+ edema, 1+ pulses. NEUROLOGIC: The patient is intact. ASSESSMENT AND PLAN: Thus, the patient with sick sinus syndrome, AV nick abnormality, malfunction, now to undergo a permanent pacemaker generator lead repositioning, both atrial and ventricular leads need to be repositioned. Jam Edwards MD SA/FELICIA TID: [id number] RECEIPT: [id number]
--- NOTE | 2024-09-14 12:53 | DVHOP ---
DATE OF SURGERY: 09/14/2024 PROCEDURES PERFORMED: * Repositioning and replacement of the RA lead. * Repositioning and replacement of the RV lead. INDICATION: The patient is morbidly obese and each time we have replaced and repositioned the lead, it displaces. Even though we have given enough slack and we are able to secure the pacemaker and the lead securely. The patient's body habitus and noncompliance is the biggest issue. Because of the patient's morbid obesity, she moves excessively, I believe, while she is asleep or when she is physically active she puts a lot of strain on the left arm that is causing her to have this displacement. Each time it always occurs 3-4 months after the repositioning has taken place. DESCRIPTION OF PROCEDURE: The patient was prepped and draped in sterile condition. A 1% Xylocaine was used to anesthetize the left subclavicular region. Using a 10-blade, linear incision was made using blunt dissection. Electrocautery pocket was then dissected out. The generator was removed. The pacemaker leads were then exposed. Then, they were repositioned into the appropriate position. The patient's threshold parameters were obtained. Leads were then secured to the chest wall using 0 Ethibond once again. Tug test was performed. It was secured. There was no evidence of any mobility of the leads with the Tug test. The pacemaker was then implanted. It was then closed using a 3-0 Monoderm subcutaneous sutures followed by 3-0 Monoderm subcuticular sutures. We instilled Ancef powder into the pocket because this is a third revision of the pocket at a higher risk for infection and because of body habitus as well. There were no complications. The patient tolerated the procedure well. RESULTS: The patient had Edora 8 DR-T model #885174, serial #[id number]. RV lead is Solia S53, model #287350, serial number [id number]. Atrial lead is Solia S45, model #993051, serial #[id number]. Threshold parameters atrium, P wave amplitude of 3.1 millivolts, threshold of 0.9 volts at 0.4 milliseconds pulse duration, pacing impedance of 465 ohms. Right ventricular lead R-wave amplitude of 12.5 millivolts, threshold of 0.7 volts at 0.4 milliseconds pulse duration, pacing impedance of 720 ohms. CONCLUSION: The patient has successful repositioning of the RA lead and RV lead with Biotronik MRI compatible system. Jam Edwards MD SA/LOUIE/FELICIA TID: [id number] RECEIPT: [id number]
--- NOTE | 2024-09-14 13:00 | DVHDS ---
DATE OF DISCHARGE: 09/14/2024 DISCHARGE DIAGNOSES: The patient with dislodged RA lead and RV lead, now repositioning of a new RA lead and RV lead. The patient is now clinically stable. shoulder restraints for at least a week. Again, given the instructions not to be excessive use of her left arm for at least 6-8 weeks until it heals and scar tissue forms. Because of the patient's morbid obesity, very pendulous breasts, there is high risk for displacement once again. If it displaces then the patient would require a leadless device. Thus, the patient had successful repositioning of the RA and RV lead. The patient will be discharged home. Follow up with me in one week. Stable at the time of discharge. ACTIVITY: As instructed. DIET: 2 g sodium diet. DISCHARGE MEDICATIONS: Keflex 500 mg q.i.d. for 7 days. Jam Edwards MD SA/MEGHAN/LEENA TID: [id number] RECEIPT: [id number]
--- NOTE | 2024-09-14 13:29 | DVH ---
CHEST RADIOGRAPH Indication: S/P PACEMAKER Technique: Single frontal view of the chest was obtained Comparison: XY CHEST XRAY 1 VIEW on DOS: 04/22/23, XY CHEST PORTABLE on DOS: 04/21/23, XY CHEST PORTABL E on DOS: 03/04/23 FINDINGS: Lines and Tubes: None. Left-sided approach dual lead pacemaker terminating within right atrium and ri ght ventricle with intact leads. Lungs: No focal consolidation. Pleura: No effusion. No pneumothorax. Cardiomediastinal contours: Heart size is within normal limits with [id number] atherosclerotic calcification and uncoiling of the aorta. Bones: No acute osseous abnormality. IMPRESSION: No acute cardiopulmonary disease.
--- NOTE | 2024-09-18 10:37 | ECG ---
[facility] Test Date: 2024-09-14 Test Time: 12:42:53 Pat Name: NATHALY TARIQ Department: Room: Gender: F Manager Management: SB : 1960 Requested By: SABAS FISH Order Number: [id number] Reading MD: Gurpreet Horton Measurements Intervals [place] Rate: 60 P: 0 MT: 0 QRS: 88 QRSD: 76 T: 49 QT: 416 QTc: 416 Interpretive Statements Electronic atrial pacemaker Electronically Signed On 09-20-2024 13:50:46 PDT by Gurpreet Horton Please click the below link to view image of tracing.
== END 2024-09-14 14:55 | disposition home or self-care (01) ==
LOC: CATH 07:12
PROVIDERS: ATTEND Internal Medicine Cardiovascular Disease
DX: T82.120A Displacement of cardiac electrode, initial encounter (principal); E66.01 Morbid (severe) obesity due to excess calories; E78.5 Hyperlipidemia, unspecified; G47.30 Sleep apnea, unspecified; I10 Essential (primary) hypertension; I49.5 Sick sinus syndrome; J44.9 Chronic obstructive pulmonary disease, unspecified; N64.89 Other specified disorders of breast; Z95.810 Presence of automatic (implantable) cardiac defibrillator
CPT/HCPCS: 33215; 36415; 71045; 80048; 85025; 85610; 85730; 93005; J0690; J1171; J2250; J3010; J3373; J7030; 99152; 99153

== ENCOUNTER → 2024-09-18 | Outpatient (CLI) | payer OTHER, MEDICAID ==
--- NOTE | 2024-09-18 14:18 | DVH ---
XY CHEST TWO VIEWS ROUTINE CLINICAL HISTORY: POST OP COMPARISON: XY CHEST TWO VIEWS ROUTINE on DOS: 09/13/24, XY CHEST TWO VIEWS ROUTINE on DOS: 09/29/23, XY CHEST TWO VIEWS ROUTINE on DOS: 04/16/23 TECHNIQUE: Frontal and lateral view of the chest was obtained FINDINGS: Lines and Tubes: Dual lead left-sided pacemaker Lungs: No focal consolidation. Pleura: No effusion. No pneumothorax. Cardiomediastinal contours: Unremarkable Bones: No acute osseous abnormality. IMPRESSION: No acute cardiopulmonary disease.
== END | disposition home or self-care (01) ==
LOC: Rad HDHVI 13:28
PROVIDERS: ATTEND Internal Medicine Cardiovascular Disease
DX: R06.02 Shortness of breath (principal); Z98.890 Other specified postprocedural states
CPT/HCPCS: 71046

== ENCOUNTER 2024-10-06 10:02 | Outpatient (CLI) | payer OTHER, MEDICAID ==
--- NOTE | 2024-10-06 11:45 | DVH ---
EXAM: XY CHEST TWO VIEWS ROUTINE CLINICAL HISTORY: SOB COMPARISON: XY CHEST TWO VIEWS ROUTINE on DOS: 09/18/24, XY CHEST PORTABLE on DOS: 09/14/24, XY CHEST T WO VIEWS ROUTINE on DOS: 09/13/24, XY CHEST TWO VIEWS ROUTINE on DOS: 09/29/23, XY CHEST XRAY 1 VIEW on DOS: 04/22/23 TECHNIQUE: Frontal and lateral view of the chest was obtained FINDINGS: Lines and Tubes: Cardiac pacemaker projects over left chest wall. Lungs: Mild pulmonary edema. Pleura: No effusion. No pneumothorax. Cardiomediastinal contours: Unremarkable. Atherosclerotic vascular calcifications of the thoracic aor ta are noted. Bones: No acute osseous abnormality. IMPRESSION: No acute cardiopulmonary disease.
== END 2024-10-06 17:00 | disposition home or self-care (01) ==
LOC: Rad HDHVI 10:02
PROVIDERS: ATTEND Internal Medicine Cardiovascular Disease
DX: J81.1 Chronic pulmonary edema (principal); R06.02 Shortness of breath; I70.0 Atherosclerosis of aorta
CPT/HCPCS: 71046

== ENCOUNTER 2024-10-11 15:54 | Outpatient (CLI) | payer OTHER, MEDICAID | END 2024-10-11 17:00 | disposition home or self-care (01) | LOC: Rad HDHVI 15:54 | PROVIDERS: ATTEND Internal Medicine Cardiovascular Disease | DX: I07.1 Rheumatic tricuspid insufficiency (principal); I11.0 Hypertensive heart disease with heart failure; I50.9 Heart failure, unspecified; R07.9 Chest pain, unspecified | CPT/HCPCS: 93306 ==